=== PATIENT | female | born 1985 | race Caucasian/White ===

== ENCOUNTER 2021-12-21 15:19 | Emergency (ER) | payer OTHER, SELFPAY ==
[2021-12-21 15:20] VITALS: BP 198/116; PULSE 97; RESP 22; TEMP 36.2; O2SAT 100; BMI 47.9
--- NOTE | 2021-12-21 15:50 | EDS_ITS ---
HPI History of Present Illness Chief Complaint: Back Informant: patient and parent Onset/Context/Timing Onset: Weeks Context: Gradual Onset Timing: Continuous Quality: Sharp, Aching and Burning Location: Lumbar, Buttock and Right Leg Current Severity: Moderate Maximum Severity: Severe Worsened by: improves with Movement Relieved by: Remaining Still Associated Symptoms Associated Symptoms: Radiation to Right Leg; Negative for Fever, Abdominal Pain, Unable to Transfer, Urinary Retention, Urinary Incontinence, Constipation or Fecal Incontinence Narrative Narrative: 36-year-old female history of prior lumbar disc ectomy around 8 years ago in [facility]. She has known L3, L4 and L5 disc disease. Says she has chronic back pain since that time. Has chronic mild left foot drop since that time. Says she has intermittent back pain usually 3 times a year. Denies any falls, injury or trauma. No fever. States about 3 weeks ago she started having lower back pain radiating to her right buttock and right hamstring. It really has not gotten better with Flexeril and Percocet. She has not been on any steroids. [place] moved from the [place] area to this area and currently has no local primary care physician is never seen in the spine surgeons here. Prior similar symptoms: Yes Recent Illness/Hospitalization: No PFSH PFSH Home Medications cyclobenzaprine 10 mg tablet 10 mg PO BID 10 days #20 tabs 12/21/21 [Rx Last Taken Unknown] oxycodone-acetaminophen 10 mg-325 mg tablet (Percocet) 1 tab PO Q6H PRN pain 5 days #20 tabs 12/21/21 [Rx Last Taken Unknown] oxycodone-acetaminophen 10 mg-325 mg tablet (Percocet) 1 tab PO Q8H PRN pain 5 days #20 tabs 12/21/21 [Rx Last Taken Unknown] prednisone 20 mg tablet 40 mg PO DAILY 10 days #20 tabs 12/21/21 [Rx Last Taken Unknown] Allergy/AdvReac Type Severity Reaction Status Date / Time Penicillins [PCN] Allergy Hives Verified 12/21/21 15:20 ROS ROS ED ROS Narrative Back pain. Review of Systems ROS Unobtainable: Denies due to encephalopathy Constitutional Constitutional ED: Denies chills or fever(s) ENT ENT ED: Denies ear pain Cardiovascular Cardiovascular: Denies chest pain Respiratory/Chest Respiratory/Chest: Denies dyspnea Gastrointestinal Gastrointestinal: Denies abdominal pain, constipation, diarrhea, melena, nausea or vomiting Genitourinary Genitourinary ED: Denies dysuria or hematuria Musculoskeletal Musculoskeletal: Denies arthralgias Integumentary Denies abscess Neurologic Neurologic: Denies headache(s) Psychiatric Psychiatric: Denies anxiety Endocrine Endocrinology: Denies cold intolerance Hematologic/Lymphatic Hematologic/Lymphatic: Denies easy bleeding Allergic/Immunologic Allergic/Immunologic ED: Denies mouth swelling or tongue swelling EXAM Physical Exam Narrative Exam Narrative: 36-year-old female. No acute distress. Vital signs stable and blood pressure is elevated due to pain at 198/116. Does not look septic or toxic. Mom present in room. HEENT exam unremarkable. Neck nontender. Lungs are clear. Heart regular rhythm rate about 95 no murmur. Abdomen soft nontender. Back exam well-healed lower lumbar surgical incision that is well-healed and years old. No spine tenderness. No SI tenderness. Both lower extremities show normal medial thigh sensation. No cauda equina. Right leg has normal motor strength and sensation. Left leg has a mild foot drop. That is chronic and old from her prior back surgery and nerve damage. Patient is awake and alert. Straight leg raise on the right at about 35 degrees. Const Vital Signs: 12/21/21 15:20 Temperature 97.2 F L Temperature Source Temporal Pulse Rate 97 Respiratory Rate 22 H Blood Pressure 198/116 H Blood Pressure Mean 143 Pulse Ox 100 Oxygen Delivery Method Room Air Positive well nourished, well developed and obese; Negative for cachectic, con tractures or unkempt General Appearance ED: well developed and NAD; Negative for unkempt, cachectic, contractures or pallor Nutritional Appearance: obese; Negative for cachectic HEENT Reports moist mucous membranes; Denies dry mucous membranes Negative for trauma or tenderness Mouth ED: No dry mucous membranes Mouth: No dry mucous membranes Eyes PERRL and EOMs intact bilaterally General Eye ED: Negative for pale conjunctiva or scleral icterus Neck no lymphadenopathy, supple and no JVD General: Negative for tenderness Thyroid: Negative for other Resp normal respiratory effort and clear to auscultation bilaterally Effort and Inspection: Negative for pain with movement Auscultation: Negative for rales, rhonchi or wheezes Percussion: Negative for other Cardio regular rate, regular rhythm, S1 normal heart sound, S2 normal heart sound and no murmurs Palpation: Negative for palpable S3 Rate: Negative for bradycardia Rhythm: Negative for abnormal rhythm Bruits: Negative for other GI normal to inspection, nondistended, normoactive bowel sounds, soft to palpation, non-tender, non-distended and no masses Inspection: Negative for abdominal distention Auscultation: Negative for hyperactive bowel sounds Palpation: Negative for tender, guarding or rebound tenderness present Back/Spine normal to inspection and no thoracic nor lumbar tenderness Back/Spine Narrative: Well-healed prior lumbar spine surgical incision. Cervical Spine: Negative for cervical spine tenderness Thoracic Spine / Upper Back: Negative for paraspinal muscle tenderness Lumbar Spine / Lower Back: Negative for ROM limited Neuro oriented x3 and no sensory deficits noted Neuro Narrative: Left foot mild foot drop. Motor Exam: strength 5/5 throughout Psych mental status grossly normal Appearance: Negative for unkempt Attitude: No agitated Mood & Affect: Negative for depressed or sad Skin no rashes or lesions noted and no wounds General Skin Exam: Negative for jaundice or pallor Lesions: No lesion noted Rashes: No rashes noted Trauma: Negative for abrasion Wounds: Negative for wounds noted MDM MDM MDM Narrative Medical decision making narrative: 36-year-old with known degenerative disc disease of L2-3-4. Prior back surgery in [facility] 8 years ago. Complaining of 3 weeks of pain not improving. She is out of her Percocet. She has no local physicians. At this time she does not have any signs of cauda equina or emergent loss of strength or sensation of her right lower extremity. She is a old foot drop on the left. Discussed with patient and her mom. She will be referred to a local primary care physician and a local spine surgeon for further evaluation. Most likely she will eventually need an MRI. It does not need to be done emergently tonight. She will be written for Percocet for pain. Prednisone for 10 days. And she knows to return if she develops fever, bowel or bladder incontinence or retention or worsening intractable pain. Discharge Plan Triage Chief Complaint: Back ED Provider: Dick Beauchamp Dx/Rx/DC Orders Clinical Impression: Back pain, Degenerative disc disease, Acute left lumbar radiculopathy Instructions: Relieving Back Pain, Understanding Lumbar Radiculopathy Prescriptions: New oxycodone-acetaminophen [Percocet] 10-325 mg tablet 1 tab PO Q6H PRN (Reason: pain) 5 Days Qty: 20 0RF prednisone 20 mg tablet 40 mg PO DAILY 10 Days Qty: 20 0RF cyclobenzaprine 10 mg tablet 10 mg PO BID 10 Days Qty: 20 0RF oxycodone-acetaminophen [Percocet] 10-325 mg tablet 1 tab PO Q8H PRN (Reason: pain) 5 Days Qty: 20 0RF Primary Care Provider: Care Physician,No Primary Referrals: Saji Donald MD [Med Staff - Assistant Director Of Admissions] - As soon as possible Rashid Cano DO [Med Staff - Active Staff] - As soon as possible Activity Restrictions/Additional Instructions: Prednisone daily to help decrease inflammation of the disc. Percocet as needed for pain. Flexeril as needed. Call and follow-up with one of the local spine surgeons as soon as possible. If you cannot get in with them in a timely manner follow-up with a local primary care physicians either one of them can order an MRI if you meet the requirements. Return if intractable pain, right leg weakness or bowel or bladder incontinence. Disposition Disposition: Home, Self Care
--- NOTE | 2021-12-21 16:07 | CM.ED ---
SW Note Referral Source: Case Find Referral Reason: No Primary Care Physician (PCP) SW reviewed chart and noted that patient has no PCP. SW provided patient with list of [facility] and [facility] Physician List for reference. No other issues or concerns voiced at this time. SW remains available for any additional needs. Plan: Provided patient with PCP information Meka KENDALL
[2021-12-21] MEDS: oxyCODONE 5 MG Tablet 10 MG PO (16:17)
[2021-12-21] MEDS: predniSONE 20 MG Tablet 40 MG PO (16:17)
== END 2021-12-21 16:21 | disposition home or self-care (01) ==
PROVIDERS: Emergency Provider Emergency Medicine; Visit Provider Emergency Medicine
DX: M51.16 Intervertebral disc disorders with radiculopathy, lumbar region (principal); G89.29 Other chronic pain; M54.9 Dorsalgia, unspecified
CPT/HCPCS: 99283